=== PATIENT | male | born 1975 | race Caucasian/White ===

== ENCOUNTER 2022-05-29 04:52 | Emergency (ER) | payer MEDICAID ==
[~2022-05-29] VITALS: Ht 167.6 cm; Wt 77.1 kg
[2022-05-29 04:53] VITALS: BP 190/90
--- NOTE | 2022-05-29 04:59 | NUR ---
PT BIBA BLS ER BED 12
--- NOTE | 2022-05-29 05:01 | NUR ---
BIBA WITH C/O "SHROOM INGESTION IN LARGE QUANTITY" PT IS CURRENTLY AGITATED AND RESTLESS
[2022-05-29] MEDS ORDERED: LORazepam 2 MG/ML VIAL IM ONE (05:10)
[2022-05-29] MEDS ORDERED: LORazepam 2 MG/ML VIAL IVP ONE (05:15)
[2022-05-29 05:47] LABS: HEMATOCRIT 41.4 % (36-52); HEMOGLOBIN 14.6 g/dL (12.0-18.0); MEAN CORPUSCULAR HEMOGLOBIN 33 pg (27-31); MEAN CORPUSCULAR HGB CONC 35 g/dL (33-37); PLATELET COUNT (AUTO) 500 K/uL (140-450); RED BLOOD CELL COUNT(AUTO) 4.36 MIL/uL (4.20-6.10); RED CELL DISTRIBUTION WIDTH 12.7 % (11.6-13.7); WHITE BLOOD COUNT (AUTO) 11.3 K/uL (4.8-10.8)
[2022-05-29 06:08] LABS: EOSINOPHILS % (MANUAL) 1 % (0-4); LYMPHOCYTES % (MANUAL) 44 % (20-46); MONOCYTES % (MANUAL) 5 % (5-12)
[2022-05-29 06:22] LABS: ALBUMIN 4.7 g/dL (3.4-5.0); CREATININE 1.2 mg/dL (0.6-1.3); SALICYLATE < 2.8 mg/dL (2.8-20.0); TOTAL BILIRUBIN 0.5 mg/dL (0.0-1.0)
[2022-05-29 06:23] LABS: ACETAMINOPHEN < 0.5 ug/ml (10-30)
--- NOTE | 2022-05-29 07:20 | NUR ---
pt a/o times 4, nad, denies any pain, o2 sat 99% ra, sr up times 2
[2022-05-29 07:50] VITALS: BP 139/92
--- NOTE | 2022-05-29 08:00 | NUR ---
pt dc'd home, a/o times 4, will be picked up by friend, ambulatory and steady gait, verbalizes instructions given in ais, denies any further questions, p to follow up w pmd in 2-3 days
== END 2022-05-29 08:00 | disposition home or self-care (01) ==
LOC: MED 04:52
DX: R45.1 Restlessness and agitation (principal); T43.651A Poisoning by methamphetamines accidental (unintentional), initial encounter; T62.0X1A Toxic effect of ingested mushrooms, accidental (unintentional), initial encounter; I10 Essential (primary) hypertension; Z79.899 Other long term (current) drug therapy; Y92.89 Other specified places as the place of occurrence of the external cause
CPT/HCPCS: 36415; 80053; 85025; 93005; 96374; 99284; G0480; G0482; J2060